=== PATIENT | female | born 1970 | race Caucasian/White ===

== ENCOUNTER 2024-02-04 10:15 | Emergency (ER) | payer OTHER ==
[2024-02-04 10:38] VITALS: BMI 23.0
[2024-02-04] MEDS: ACETAMINOPHEN 1000 MG/100 ML BAG IVPB ONE (11:30)
[2024-02-04] MEDS ORDERED: ACETAMINOPHEN INJECTION 100 ML IVPB ONE (11:33)
[2024-02-04 12:04] LABS: BASO % 0.1 % (0-2.0); EOS % 0.8 % (0-4.5); HEMATOCRIT 38.8 % (32.4-45.2); HEMOGLOBIN 12.3 GM/dL (10.7-15.3); MCHC 31.8 g/dl (32.0-36.0); MEAN CELL VOLUME 88.1 fl (80-96); MEAN PLT VOLUME 7.9 fl (7.5-11.1); MONO % 4.9 % (3.8-10.2); NEUT % 75.2 % (42.8-82.8); PLATELET COUNT 240 10^3/uL (134-434); RBC 4.41 M/mm3 (3.60-5.2); RDW 13.8 % (11.6-15.6); WHITE BLOOD COUNT 6.2 K/mm3 (4.0-10.0)
[2024-02-04] MEDS: LACTATED RINGERS SOLUTION 1000 ML INFUS.BAG IV ONE (12:28)
[2024-02-04 12:29] LABS: POTASSIUM 3.9 mmol/L (3.5-5.1)
[2024-02-04 12:30] LABS: CALCIUM 9.2 mg/dL (8.5-10.1)
[2024-02-04 12:31] LABS: ALBUMIN 3.6 g/dl (3.4-5.0); BLOOD UREA NITROGEN 16.7 mg/dL (7-18)
[2024-02-04 12:34] LABS: CREATININE 0.5 mg/dL (0.55-1.3)
[2024-02-04 12:36] LABS: BILIRUBIN,TOTAL 0.3 mg/dL (0.2-1)
[2024-02-04 14:00] VITALS: BP 128/80; PULSE 73; RESP 16; TEMP 98
== END 2024-02-04 14:00 | disposition home or self-care (01) ==
LOC: JER 10:15
PROC: 3E033NZ Introduction of Analgesics, Hypnotics, Sedatives into Peripheral Vein, Percutaneous Approach (ICD-10-PCS; principal; 2024-02-04)
DX: R00.2 Palpitations (principal); R42 Dizziness and giddiness; R55 Syncope and collapse; Z20.822 Contact with and (suspected) exposure to COVID-19
CPT/HCPCS: 0241U-QW; 36415; 71045-TC-FY; 80053; 84443; 84484; 84703; 85025; 86850; 86900; 86901; 93005; 93010; 99285-25; J0131